=== PATIENT | male | born 1965 | race Caucasian/White ===

== ENCOUNTER 2023-03-29 05:53 | Emergency (ER) | payer MEDICAID ==
[~2023-03-29] VITALS: Ht 182.9 cm; Wt 72.1 kg
[2023-03-29 06:16] VITALS: BP 113/82; PULSE 86; RESP 17; TEMP 98.2; O2SAT 99
[2023-03-29] MEDS ORDERED: KETOROLAC 30 MG/ML VIAL IM ONE (07:25)
[2023-03-29 09:41] LABS: FLU A ANTIGEN negative (NEGATIVE); FLU B ANTIGEN NEGATIVE (NEGATIVE)
[2023-03-29] MEDS ORDERED: DEXT118S25 PO (10:04)
[2023-03-29] MEDS ORDERED: IBUP-2213 PO (10:04)
[2023-03-29 10:15] VITALS: BP 113/82; PULSE 86; RESP 17; TEMP 98.2; O2SAT 99
== END 2023-03-29 10:15 | disposition home or self-care (01) ==
LOC: MED 05:53
DX: J06.9 Acute upper respiratory infection, unspecified (principal); Z20.822 Contact with and (suspected) exposure to COVID-19; Z79.899 Other long term (current) drug therapy; Z79.1 Long term (current) use of non-steroidal anti-inflammatories (NSAID)
CPT/HCPCS: 71045; 87426; 87804; 96372; 99284; J1885